=== PATIENT | female | born 1990 | race Caucasian/White ===

== ENCOUNTER 2016-11-08 16:25 | Emergency (ER) ==
[2016-11-08 16:30] VITALS: BP 147/88
[2016-11-08] MEDS ORDERED: NORCO-7.5 PO ONE (17:02)
[2016-11-08] MEDS ORDERED: PHENERGAN PO ONE (17:02)
--- NOTE | 2016-11-08 17:08 | PROVIDER DOCUMENTATION ---
HPI-EENT General - General Chief Complaint: Toothache Stated Complaint: DENTAL ABSCESS/MIGRAINE Time Seen by Provider: 11/08/16 16:33 Source: patient Allergies/Adverse Reactions: Patient Allergies Allergy/AdvReac Type Severity Reaction Status Date / Time ceftriaxone sodium * Allergy RASH Verified 11/08/16 16:46 [From Rocephin] Home Medications: Home Medication List Medication Instructions Recorded Confirmed Last Taken Type Clindamycin [Cleocin] 150 mg PO Q6HR #30 capsule 11/08/16 Unknown Rx Lidocaine 2% Viscous [Xylocaine 2% 1 ml MT Q3H PRN PRN #1 bottle 11/08/16 Unknown Rx Viscous] - History of Present Illness-EENT General Nature of Presenting Problem: 26 y/o WF c/o L lower jaw x 3 days. Pt states hx of dental decay in the L lower jaw and hypertrophy of gum in that area. Pt states hx of teeth "chipping " recently. Denies any other sxs. Review of Systems - Adult - REVIEW OF SYSTEMS - ADULT Constitutional: reports: no symptoms reported. denies: chills, fever Eyes: reports: no symptoms reported. denies: blurred vision, double vision Ears, Nose, Mouth & Throat: reports: see HPI, mouth/dental pain. denies: nose pain, throat pain Cardiovascular: reports: no symptoms reported. denies: chest pain, palpitations Respiratory: reports: no symptoms reported. denies: dyspnea on exertion, shortness of breath Gastrointestinal: reports: no symptoms reported. denies: nausea, vomiting Genitourinary: reports: no symptoms reported. denies: dysuria, frequency Musculoskeletal: reports: no symptoms reported. denies: joint pain, joint swelling Integumentary: reports: no symptoms reported. denies: nail changes, rash Neurological: reports: no symptoms reported. denies: numbness, paresthesia Psychiatric: reports: no symptoms reported Endocrine: reports: no symptoms reported. denies: cold intolerance, heat intolerance Hematologic/Lymphatic: reports: no symptoms reported. denies: easy bruising, prolonged bleeding Allergic/Immunologic: reports: no symptoms reported All Other Systems: Reviewed and Negative Past History - Adult - PAST MEDICAL HISTORY-ADULT Review of Records: reports: Nursing Assessment Review, Medications Reviewed Neurological: reports: headaches/migraines - PRIOR SURGERIES/PROCEDURES Surgical/Procedure History: reports: orthopedic (extremity) (left wrist surgery) - IMMUNIZATION STATUS Childhood Immunizations: UTD, See Nurse Assessment Flu Vaccine: See Nurse Assessment - FAMILY HISTORY Family History: reviewed, not pertinent - SOCIAL HISTORY Smoking: cigarettes, less than 1 pack/day Provider spent 3-5 mins advising pt. on dangers of tobacco.: Discussed manners to quit use, and f/u contacts for add'l counseling. Physical Exam- EENT - Physical Exam EENT Initial Vital Signs Reviewed: Yes General Appearance: alert, mild distress Eye Exam: bilateral eye: normal inspection Ear Exam: bilateral ear: auricle normal Nasal Exam: normal inspection Throat Exam: normal mouth inspection, dental tenderness Mouth,Throat: 1 - dental decay. hypertrophy of gingiva with erythema. Neck: supple, normal inspection. negative: lymphadenopathy Respiratory: no respiratory distress Lymphatic: no adenopathy Back Exam: normal inspection Extremity: normal gait Integumentary: normal color, normal turgor, warm/dry Neurologic: negative: aphasia Psych/Mental Status: normal mood/affect, normal thought content, normal thought process, oriented x 3 Departure - Departure Time of Disposition Order: 17:09 DIAGNOSIS: Tooth decay, Gingival hypertrophy Disposition: HOME 01 Certified Medical Emergency: Emergent Condition: Stable Additional Instructions: Take medications as directed. Follow up with specialist for further management. Return if symptoms get worse. ED Follow Up Instructions: You have been treated by a care provider in the Emergency Department. These instructions are being provided to you so you can have an understanding of how to care for yourself upon discharge. Upon discharge from the Emergency Department, you are responsible for making arrangements for follow-up care by a physician of your choice. Take all prescribed medications as directed. Return to the Emergency Department immediately for any new or worsening symptoms. You may call the Physician Referral phone number at [phone] to obtain a list of Physicians who are taking new patients. Prescriptions: Clindamycin [Cleocin] 150 mg PO Q6HR #30 capsule Lidocaine 2% Viscous [Xylocaine 2% Viscous] 1 ml MT Q3H PRN PRN #1 bottle PRN Reason: Pain Referrals: None,PCP [Primary Care Provider] - Vinh Banegas MD [STAFF PHYSICIAN] - Attestation - Physician/ EVON Attestation Patient care was provided by Advanced Practice Provider:: Yes Advanced Practice Provider:: Erica Blas Advanced Practice Provider documentation review:: The Mid-level provider documentation, treatment plan and medical decision making was reviewed by the physician who agrees with all treatment and medical decision making by the MLP.
== END 2016-11-08 17:26 | disposition home or self-care (01) ==
LOC: ED 16:25
DX: K02.9 Dental caries, unspecified (principal); K06.1 Gingival enlargement; K08.89 Other specified disorders of teeth and supporting structures; R51 Headache; F17.210 Nicotine dependence, cigarettes, uncomplicated; Z71.6 Tobacco abuse counseling